=== PATIENT | female | born 1965 | race Two or more races ===

== ENCOUNTER 2023-08-26 03:08 | Emergency (ER) | payer OTHER ==
[~2023-08-26] VITALS: Ht 165.1 cm; Wt 54.4 kg
[2023-08-26] MEDS ORDERED: TOPROL XL25 M1 (03:16)
[2023-08-26 05:01] LABS: HEMATOCRIT 35.9 % (36.0-45.00); HEMOGLOBIN 12.2 g/dL (12.0-15.00); MEAN CELL VOLUME 91.3 fL (80.00-100.00); MEAN CORPUSCULAR HEMOGLOBIN 31.1 pg (27.00-32.0); PLATELET COUNT 290 K/uL (150-450); RED BLOOD COUNT 3.93 M/uL (4.00-6.00); RED CELL DISTRIBUTION WIDTH 13.1 % (11.5-14.5)
[2023-08-26] MEDS ORDERED: BETAMETHASONE D15 G2 TOP (05:16)
== END 2023-08-26 05:20 ==
LOC: ER 03:08
PROVIDERS: General Practice
DX: R21 Rash and other nonspecific skin eruption (principal); Z88.8 Allergy status to other drugs, medicaments and biological substances; I10 Essential (primary) hypertension